=== PATIENT | male | born 1970 | race Hispanic/Latino ===

== ENCOUNTER 2018-11-28 20:56 | Observation (INO) ==
--- NOTE | 2018-11-28 21:30 | EKG ---
[address] [place] [address] Measurements Intervals [place] Rate: 106 P: 63 CA: 154 QRS: -5 QRSD: 118 T: 37 QT: 311 QTc: 373 Interpretive Statements SINUS TACHYCARDIA MODERATE INTRAVENTRICULAR CONDUCTION DELAY [110+ ms QRS DURATION] ST ELEVATION, PROBABLY EARLY REPOLARIZATION [ST ELEVATION WITH NORMALLY INFLECTED T WAVE] TYPE 3 BRUGADA PATTERN (NON-DIAGNOSTIC) [COVED/SADDLEBACK ST ELEVATION > 0.1mV IN 2 OF V1-3] ABNORMAL RHYTHM ECG No previous ECG available for comparison Electronically Signed On 11-29-18 14:01:07 [facility] by Hugh Mosley MD [email or web address]
[2018-11-28] MEDS ORDERED: KETOROLAC 15 MG/1 ML VIAL IVP ONE (21:39)
[2018-11-28] MEDS ORDERED: LORazepam 2 MG/1 ML VIAL IVP ONE (21:39)
[2018-11-28] MEDS ORDERED: Sodium Chloride 0.9% 1,000 ML PRIMARY IV ONE (21:39)
[2018-11-28] MEDS ORDERED: ONDANSETRON 4 MG/2 ML VIAL IVP ONE (21:39)
--- NOTE | 2018-11-28 21:43 | PDOC ---
General Adult HPI - General Chief Complaint: Abdomen Pain Stated Complaint: Feels like indigestion. Date Seen by Provider: 11/28/18 Time Seen by Provider: 21:30 Source: POSITIVE: Patient Exam Limitations: POSITIVE: No limitations - History of Present Illness Initial Comment: This is a well-developed, well-nourished, 48-year-old male, who is complaining of chest pain, shortness of breath, and abdominal pain. Patient's symptoms began just after lunch today at which time he had eaten some sausage. In addition he has diarrhea and is complaining of belching. Patient denies any headache, no sore throat, no runny nose, no chest pain but he does have rapid heart rate and shortness of breath. Patient denies any nausea vomiting or diarrhea, no hematuria or dysuria, no myalgias or arthralgias, no rashes, no ataxia. Any fever chills or sweats. Have you received a tetanus shot in the past 10 years?: Yes Body Location Affected: REPORTS: Chest, Abdomen Timing: REPORTS: Abrupt Duration: <24 hours Severity: Moderate Quality: REPORTS: "Pain" Context: REPORTS: Other (After eating) Modifying Factors: improves with: Nothing Similar Symptoms Previously: No Recent Care Received: REPORTS: Denies Any Prior Injuries Related to Current Complaint?: No - Patient Home Medications Home Medications: Home Medications enalapril maleate 10 mg tablet 10 mg PO BID #60 tab 08/26/18 Omeprazole 20 mg PO DAILY 11/28/18 - Patient Allergies Allergies/Adverse Reactions: Allergies Allergy/AdvReac Type Severity Reaction Status Date / Time No Known Allergies Allergy Verified 11/28/18 20:59 Past Medical History - heen HEENT History: Denies History Cardiovascular History: Hypertension Respiratory History: Denies History Gastrointestinal History: Denies History Genitourinary History: Denies History Endocrine History: Denies History Musculoskeletal History: Denies History Neurological History: Denies History Blood Disorders: Denies History Psychiatric History: Denies History Male Reproductive History: Denies History Cancer History: Denies History In Past Year Been Physically Harmed or Verbally Threatened: No History of MDRO: No Tobacco Use: Former Smoker In the Past 12 Months, Have Used or Abuse Any Substance: None Previous Surgical History: No Significant Family History: No pertinent family hx ROS - Limitations ROS Limitations: No Limitations Constitution: REPORTS: Denies Symptoms Cardiovascular: REPORTS: Heart Racing Respiratory: REPORTS: Shortness Of Breath Neurological: REPORTS: Denies Neuro Symptoms Gastrointestinal: REPORTS: Abdominal Pain Endocrine: REPORTS: Denies Symptoms Musculoskeletal: REPORTS: Denies MS Symptoms Genitourinary: REPORTS: Denies Symptoms Eyes: REPORTS: Denies Symptoms ENT: REPORTS: Denies Symptoms Skin: REPORTS: Denies Skin Symptoms Lympathic: REPORTS: Denies Lympathic Symptoms Immunologic: POSITIVE: Denies Symptoms Psychiatric: POSITIVE: Denies Psych Symptoms General Adult Exam - General Appearance General Appearance: POSITIVE: Alert, Cooperative, No Evidence of Trauma, Mild Distress - HEENT HEENT: POSITIVE: Head Inspection Nml, Eyes Inspection Nml, Ears Inspection Nml, Nose Inspection Nml, Oral/Dental Inspect. Nml, Pharynx Inspect. Nml, PERRL, EOMI - Pupils Pupil Size: 5 mm: Bilateral - Neck Neck: POSITIVE: Normal Inspection - Respiratory Respiratory: POSITIVE: No Respiratory Distress, Breath Sounds Normal, Chest Non- Tender - Cardiovascular Cardiovascular: POSITIVE: No Murmur, No Gallop, PMI Normal, Tachycardia Peripheral Pulses: Radial (R): 4+ - Abdomen Abdomen: Soft: (All Quadrants), Normal Bowel Sounds: (All Quadrants), Denies Tenderness: (RLQ), (LUQ), (RUQ), No Splenomegaly: (All Quadrants), No Hepatomegaly: (All Quadrants), No Guarding: (All Quadrants), No Rebound: (All Quadrants), No Palpable Pulse: (All Quadrants), No Palpabale Mass: (All Quadrants), No Distention: (All Quadrants), No Rigidity: (All Quadrants), Tenderness Noted: (LLQ) - Back Back: POSITIVE: Normal Inspection - Skin Skin: POSITIVE: Normal Color, Warm, Dry, No Rash - Extremities Extremity: Non-Tender: (All Extremities), Normal ROM: (All Extremities), Normal Inspection: (All Extremities), Pelvis Stable: (All Extremities) - Neurological / Psychological Neurological: POSITIVE: Affect Apporpriate, Oriented X3, Motor Normal, Sensation Normal Procedures - Laceration/Wound Repair Did patient have a laceration repair: No General Adult Progress - Results Reviewed by me Xrays/CTs/US Reviewed by me: Yes Discussed with Radiologist: Yes Lab Results Reviewed by Me: Yes Lab Results:: Laboratory Results 11/28/18 11/28/18 11/28/18 20:45 22:01 22:01 WBC 10.27 RBC 5.03 Hgb 15.4 Hct 46.0 MCV 91.5 H MCH 30.6 MCHC 33.5 RDW Std Deviation 42.7 RDW Coeff of Jimmy 12.9 Plt Count 282 MPV 9.9 Immature Gran % (Auto) 0.2 Neut % (Auto) 79.7 Lymph % (Auto) 12.0 [place] % (Auto) 7.3 Eos % (Auto) 0.7 Baso % (Auto) 0.1 Immature Gran # (Auto) 0.02 Neut # (Auto) 8.19 Lymph # (Auto) 1.23 [place] # (Auto) 0.75 Eos # (Auto) 0.07 Baso # (Auto) 0.01 WBC Morphology Comment Normal morphology Plt Morphology Comment Normal morphology RBC Morph Comment Normal morphology ESR 13 PT 10.0 INR 0.98 D-Dimer 0.20 Sodium Potassium Chloride Carbon Dioxide Anion Gap BUN Creatinine Estimated GFR BUN/Creatinine Ratio Glucose Calculated Osmolality Calcium Magnesium Total Bilirubin AST ALT Alkaline Phosphatase CK-MB (CK-2) Troponin I Handheld C-Reactive Protein NT-Pro-B Natriuret Pep Total Protein Albumin Globulin Albumin/Globulin Ratio Amylase Lipase TSH Ur Collection Type Clean catch urine Urine Color Yellow Urine Clarity Clear Urine pH 7.0 Ur Specific [place] 1.010 Urine Protein Negative Urine Glucose (UA) Negative Urine Ketones Negative Urine Occult Blood Trace-intact H Urine Nitrate Negative Urine Bilirubin Negative Urine Urobilinogen 0.2 Ur Leukocyte Esterase Negative Urine RBC 1-3 Urine WBC None Ur Squamous Epith Cells None Ur Renal Epithelial Cell None Urine Crystals None Urine Bacteria None Urine Casts None Urine Mucus None Urine Trichomonas None Urine Yeast None Ur Culture Indicated? Culture not set 11/28/18 11/28/18 11/28/18 22:01 22:01 22:01 WBC RBC Hgb Hct MCV MCH MCHC RDW Std Deviation RDW Coeff of Jimmy Plt Count MPV Immature Gran % (Auto) Neut % (Auto) Lymph % (Auto) [place] % (Auto) Eos % (Auto) Baso % (Auto) Immature Gran # (Auto) Neut # (Auto) Lymph # (Auto) [place] # (Auto) Eos # (Auto) Baso # (Auto) WBC Morphology Comment Plt Morphology Comment RBC Morph Comment ESR PT INR D-Dimer Sodium 139 Potassium 3.5 L Chloride 103 Carbon Dioxide 26 Anion Gap 10 BUN 13 Creatinine 0.9 Estimated GFR > 60 BUN/Creatinine Ratio 14.44 Glucose 151 H Calculated Osmolality 290.0 Calcium 9.8 Magnesium 1.8 Total Bilirubin 0.8 AST 28 ALT 32 Alkaline Phosphatase 94 CK-MB (CK-2) 2.62 Troponin I Handheld 0.000 C-Reactive Protein 0.9 NT-Pro-B Natriuret Pep 44.5 Total Protein 7.8 Albumin 4.7 Globulin 3.1 Albumin/Globulin Ratio 1.50 Amylase 134 H Lipase 113 TSH 2.05 Ur Collection Type Urine Color Urine Clarity Urine pH Ur Specific [place] Urine Protein Urine Glucose (UA) Urine Ketones Urine Occult Blood Urine Nitrate Urine Bilirubin Urine Urobilinogen Ur Leukocyte Esterase Urine RBC Urine WBC Ur Squamous Epith Cells Ur Renal Epithelial Cell Urine Crystals Urine Bacteria Urine Casts Urine Mucus Urine Trichomonas Urine Yeast Ur Culture Indicated? CBC and BMP: 11/28/18 22:01 11/28/18 22:01 EKG Interpreted/Reviewed By Me:: Yes EKG Interpretation:: POSITIVE: Abnormal EKG (Patient's EKG shows a tachycardia with 109 beats a minute and ST changes in lead V3 suggestive of Brugada syndrome.) - Patient's Progress Pain Medication Addressed: POSITIVE: Yes Re-Examine Time: 23:19 Status: POSITIVE: Improved MDM / ED Course: Patient was evaluated, an IV started, blood drawn and sent to the lab for studies, CT examination of chest and abdomen were obtained as well as EKG. Findings: EKG shows sinus tachycardia with a rate of 106 beats a minute and no ST elevated VA is appreciated however there is ST changes in lead V3 suggestive of Brugada syndrome. CBC shows white count hemoglobin and hematocrit and platelets are normal. ESR is 13 and CRP is 0.9. PT/INR normal. D-dimer is normal at 0.20. Troponin is 0.000 and CK-MB is 2.62. CMP shows potassium of 3.5 and a glucose 151. Amylase is elevated at 134 with a normal lipase 113. TSH is 2.05. Urinalysis is positive for blood and negative for bacteria. CT scan of the chest shows no acute intrathoracic abnormalities specifically no PE. CT of the abdomen shows fluid in the small bowel that is nonspecific with no indication of bowel obstruction. Assessment: #1 chest pain with normal troponin however EKG shows ST changes in the anterior lateral leads suggestive of Brugada syndrome. #2 abdominal pain. Plan: Patient being admitted to rule out myocardial infarction. I've discussed patient with Dr. Santino Kearney, on-call patrol police sergeant in [facility], who is recommending admission, rule out, and evaluation by cardiology to further investigate Brugada syndrome. Patient is being started on a beta zacharaih per Dr. Kearney's recommendations. He recommends metoprolol, 25 mg by mouth twice a day. Antibiotics Given: No Quality Measure Initiative: CP/AMI: POSITIVE: EKG Quality Measure Initiative: CAP: POSITIVE: CXR or CT CVA/Syncope: POSITIVE: EKG - Consult Consult (If Yes, Name of Consulting MD & Time Called): Yes (Dr. Velazquez) Consulting MD will see pt:: POSITIVE: [facility] Admit Counseled: POSITIVE: Patient, RE: Lab Results, RE: Radiology Results, RE: DX, RE: Need for F/U Patient Care Time - Estimated PCT Patient Care Time (In Minutes): 60 Vital Signs - Recent Vital Signs Vital Signs: Vital Signs (Last 8 hours) Temp Pulse Resp BP Pulse Ox 11/28/18 21:07 98.9 F 117 H 20 136/105 97 - VS Reviewed Vital Signs Reviewed: Yes Discharge Clinical Impression: Chest pain, Abdominal pain Discharge Disposition: Admit to Inpatient Condition: Stable Follow Up With: NONE,NONE [Primary Care Provider] - Date Decision to Admit to Inpatient: 11/28/18 Time Decision to Admit to Inpatient: 23:37
[2018-11-28 22:07] LABS: BASOPHILS # (AUTO) 0.01 10*3/UL; BASOPHILS % (AUTO) 0.1 % (0-1); EOSINOPHILS # (AUTO) 0.07 10*3/UL; EOSINOPHILS % (AUTO) 0.7 % (0-8); Hemoglobin [HGB] 15.4 g/dL (14.0-18.0); LYMPHOCYTES # (AUTO) 1.23 10*3/uL; MEAN CORPUSCULAR HEMOGLOBIN 30.6 PG (27-31); MEAN CORPUSCULAR HGB CONC 33.5 g/dL (33-37); MEAN CORPUSCULAR VOLUME 91.5 FL (80-90); MEAN PLATELET VOLUME 9.9 FL (7.4-12.2); MONOCYTES # (AUTO) 0.75 10*3/UL (0.3-0.8); MONOCYTES % (AUTO) 7.3 % (5-15); NEUTROPHILS # (AUTO) 8.19 10*3/UL; NEUTROPHILS % (AUTO) 79.7 % (50-80); RED BLOOD COUNT 5.03 10^6/uL (4.70-6.10)
[2018-11-28 22:08] LABS: PLATELET MORPHOLOGY COMMENT NORMAL MORPHOLOGY (NORM); RBC MORPHOLOGY COMMENT NORMAL MORPHOLOGY (NORM); WBC MORPHOLOGY COMMENT NORMAL MORPHOLOGY (NORM)
[2018-11-28 22:17] LABS: BLOOD UREA NITROGEN 13 mg/dL (7-22); BUN/CREATININE RATIO 14.44 (6-20); LIPASE 113 IU/L (23-300); SERUM ALBUMIN 4.7 g/dL (3.5-4.8)
[2018-11-28 22:44] LABS: Erythrocyte Sediment Rate 13 MM/HR (0-15)
[2018-11-28 22:50] LABS: BILIRUBIN,URINE NEGATIVE (NEG); CLARITY,URINE CLEAR (CLEAR); COLOR,URINE YELLOW (Y); GLUCOSE, URINE (UA) NEGATIVE (NEG); OCCULT BLOOD,URINE Trace-intact (NEG); PROTEIN,URINE NEGATIVE (NEG); UROBILINOGEN,URINE 0.2 EU/dL (0.2)
[2018-11-28 22:52] LABS: URINE SAMPLE TYPE CLEAN CATCH URINE
--- NOTE | 2018-11-28 23:09 | DI ---
EXAM: CT Angiography Chest With Intravenous Contrast CLINICAL HISTORY: ITS.REASON sob Physician Notes: Tech Comments: TECHNIQUE: Axial computed tomographic angiography images of the chest with intravenous contrast using pulmonary embolism protocol. MIP reconstructed images were created and reviewed. COMPARISON: No relevant prior studies available. FINDINGS: Pulmonary arteries: Suboptimal bolus timing for the evaluation of PE. No large central PE. Some peripheral vessels not well seen. Aorta: No aortic aneurysm or dissection. Lungs: No consolidation. Pleural space: No significant effusion. No pneumothorax. Heart: Unremarkable. Bones/joints: Age indeterminate T8 and T9 compression deformities, may be remote. Soft tissues: Unremarkable as visualized. Lymph nodes: Unremarkable. IMPRESSION: No acute intrathoracic process..
--- NOTE | 2018-11-28 23:18 | DI ---
EXAM: CT Abdomen and Pelvis With Intravenous Contrast CLINICAL HISTORY: ITS.REASON abd pain Physician Notes: Tech Comments: TECHNIQUE: Axial computed tomography images of the abdomen and pelvis with intravenous contrast. COMPARISON: No relevant prior studies available. FINDINGS: Lung bases: No acute findings. ABDOMEN: Liver: Low-attenuation adjacent to the falciform ligament, possible focal fatty infiltration. Gallbladder and bile ducts: Unremarkable. Pancreas: Unremarkable. Spleen: Unremarkable. Adrenals: Unremarkable. Kidneys and ureters: Unremarkable. No hydronephrosis. Stomach and bowel: Mild fluid and air in small bowel loops, nonspecific, enteritis not excluded in the appropriate clinical setting. No evidence of bowel obstruction. Areas of mild colonic wall thickening may be related to underdistention. PELVIS: Appendix: Normal caliber appendix. Bladder: Unremarkable. Reproductive: Unremarkable as visualized. ABDOMEN and PELVIS: Intraperitoneal space: No free air. No significant fluid collection. Bones/joints: No acute fracture. Soft tissues: Small fat-containing umbilical hernia, ventral hernia, and inguinal hernias. Vasculature: Unremarkable. Lymph nodes: Unremarkable. IMPRESSION: 1. Mild fluid and air in small bowel loops, nonspecific, enteritis not excluded in the appropriate clinical setting. 2. Additional incidental findings, as above.
[2018-11-28] MEDS ORDERED: Metoprolol TARTRATE Tab 50 MG TAB PO ONE (23:32)
--- NOTE | 2018-11-29 00:08 | PDOC ---
HPI - History of Present Illness Date of Service: 11/28/18 Time of Service: 23:50 Chief Complaint: Burping, palpitation, pain epigastric chest area after burping. History of Present Illness: This is a 48 years old male with medical history significant for history of hypertension on enalapril who presented to the hospital with history of burping, some epigastric and chest pain after burping, did feel his heart was racing this all happened after lunch today. He said he ate some sausage. Patient did report some diarrhea he had about 3 bowel movements. No nausea no vomiting. No fever. Because of all the symptoms he came into the ER and had multiple testing including CT of the abdomen and chest showed some enteritis. Lab tests were n ormal except minimally elevated amylase, lipase was normal though. An EKG showed abnormality of the T-wave in V3 this was discussed with manager of radiology and he suggested metoprolol and admission for rule out and likely transfer in the morning if they bed at [facility]. Patient was given metoprolol also based on the cardiology recommendation. By the time came into the floor the patient continued to belch and he said he feel he has some gas in his stomach. Past Medical History Medical History: 1. Hypertension had it for 10 years Surgical History: No history of surgeries Pertinent Family History: Mother and father had hypertension Past Social History: Used to smoke quit in according to him, occasionally drink heavily last time was 25 days ago, rarely uses drugs. 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 Tobacco Use: Former Smoker Do you dip or chew tobacco: No In the Past 12 Months, Have Used or Abuse Any of the Following Substance: None Alcohol Use: Occasionally Medication / Allergies Home Medications: Home Medications Medication Instructions Recorded Confirmed Type enalapril maleate 10 mg tablet 10 mg PO BID #60 tab 08/26/18 11/28/18 Rx Omeprazole 20 mg PO DAILY 11/28/18 11/28/18 History Allergies/Adverse Reactions: Allergies Allergy/AdvReac Type Severity Reaction Status Date / Time No Known Allergies Allergy Verified 11/28/18 20:59 Review of Systems - Review of Systems All Systems: Reviewed & No Additional Complaints Except as Stated Exam - Vitals Vital Signs: Vital Signs Temperature 98.0 F Temperature Source Temporal Artery Scan Pulse Rate [Pulse Oximeter] 117 Pulse Rate 84 Respiratory Rate 18 Blood Pressure [Left Arm] 136/105 Blood Pressure 140/94 Pulse Ox 93 Oxygen Delivery Method Room Air Height 5 ft 7 in Weight 168 lb 9.6 oz - General General Appearance: No Acute Distress, Cooperative - Head Head Exam: Normal Inspection - Eye Eye Exam: POSITIVE: Normal Appearance - ENT ENT Exam: POSITIVE: Normal Exam - Neck Neck Exam: Normal Inspection - Respiratory Respiratory Exam: POSITIVE: Clear to Auscultation - Bilaterally - Cardiovascular Cardiovascular Exam: POSITIVE: RRR - GI/Abdominal GI/Abdominal Exam: POSITIVE: Normal Bowel Sounds, Non Distended, Soft, No Organomegaly Additional GI/Abdominal Exam Details: Minimal tenderness in the epigastric area abdomen is very soft. - Rectal Rectal Exam: POSITIVE: Deferred - External Exam: POSITIVE: Deferred - Extremities Extremities Exam: POSITIVE: Normal Inspection - Back Back Exam: POSITIVE: Normal Inspection - Neurological Neurological Exam: POSITIVE: Alert, Oriented x 3, CN II-XII Intact, No Facial Droop, Speech Intact / Clear, Moves All Extremities Equally - Psychiatric Psychiatric Exam: POSITIVE: Normal Affect Results - Labs CBC and BMP: 11/28/18 22:01 11/28/18 22:01 - EKG Data -: EKG Interpreted by Me Rate: Tachycardia - EKG Data EKG Interpretation: Other (EKG showed sinus tachycardia, with incomplete right bundle, there is minimal elevation in V3 with some abnormality in T-wave there. Questionable Brugada pattern) - Imaging Status: Report Reviewed by Me (CT chest Negative, CT abdomen 1. Mild fluid and air in small bowel loops, nonspecific, enteritis not excluded in the appropriate clinical setting.) Assessment and Plan - Patient Problems (1) Abdominal pain Current Visit: Yes Status: Acute Comment: Symptoms mainly looks abdominal probably gastroenteritis. He had belching and diarrhea with also possible reflux symptoms. Will put him on Protonix. Put him on some IV fluid. The chest discomfort looks like reflux rather than anginal pain. Code(s): R10.9 - Unspecified abdominal pain (2) Abnormal EKG Current Visit: Yes Status: Acute Comment: His EKG was abnormal possible Brugada pattern and this was discussed with the manager of radiology per the ER physician will rule him out based on the manager of radiology recommendation and will continue with metoprolol. Will speak with the manager of radiology tomorrow to see his recommendation. Code(s): R94.31 - Abnormal electrocardiogram [ECG] [EKG] (3) Hypertension Current Visit: Yes Status: Acute Comment: Continue enalapril. Code(s): I10 - Essential (primary) hypertension
[2018-11-29] MEDS ORDERED: ONDANSETRON 4 MG/2 ML VIAL IVP PRN (00:10)
[2018-11-29] MEDS ORDERED: LIDOCAINE W/ SODIUM BICARB 0.5 ML SYR SUBD PRN (00:10)
[2018-11-29] MEDS ORDERED: CALCIUM CARBONATE 500 MG (TUMS) CHEWABLE TABLET PO PRN (00:10)
[2018-11-29] MEDS ORDERED: Sodium Chloride 0.9% 1,000 ML PRIMARY IV SCH (00:15)
[2018-11-29] MEDS ORDERED: SIMETHICONE 80 MG TABLET PO PRN (00:25)
[2018-11-29] MEDS: PANTOPRAZOLE IV 40 MG VIAL IVP SCH ×2 (00:30→11:25)
[2018-11-29] MEDS ORDERED: ACETAMINOPHEN 325 MG TABLET PO PRN (00:36)
[2018-11-29] MEDS ORDERED: Metoprolol TARTRATE Tab 25 MG TAB PO SCH (09:00)
[2018-11-29] MEDS ORDERED: ENALAPRIL 10 MG TABLET PO SCH (09:00)
--- NOTE | 2018-11-29 09:49 | DCSUMMARY ---
Hospitalization Summary Admit Date: 11/28/2018 Discharge Date: 11/29/18 Hospital Course: Discharge diagnoses 1. Probable gastroenteritis 2. GERD 3. Hypertension 4. Abnormal EKG questionable Brugada pattern Hospital course This is a 48 years old male with medical history significant for history of hypertension on enalapril who presented to the hospital with history of burping, some epigastric and chest pain after burping, did feel his heart was racing this all happened after lunch on the day of admission. He said he ate some sausage. Patient did report some diarrhea he had about 3 bowel movements. No nausea no vomiting. No fever. Because of all the symptoms he came into the ER and had multiple testing including CT of the abdomen and chest which showed some enteritis. Lab tests were normal except minimally elevated amylase, lipase was normal though. An EKG showed abnormality of the T-wave in V3 this was discussed with fitting room attendant and he suggested metoprolol and admission for rule out . Patient was given metoprolol based on the cardiology recommendation. By the time he came into the floor the patient continued to belch and he said he felt he has some gas in his stomach. We kept him overnight, repeat his enzymes and they remained negative. He felt better the next day. There is no diarrhea. He is describing more symptoms after he eats he would feel what she described as a "stress" in his stomach and pointing to his epigastrium and mid chest these last for 2 hours he said. I suspect he may have some reflux. I did speak with the fitting room attendant Dr. Kearney and he said he'll same as an outpatient. I did tell him that if his symptoms persist after a trial of treatment with Protonix he probably need to have a scope done. Regarding the EKG pattern it is not clear-cut I think Brugada pattern but suspicious and as recommended by cardiology will put him on metoprolol until he is seen by him. 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 We gave him antifungal with steroid combination. He need follow-up with his primary Laboratory Results 11/28/18 11/28/18 11/28/18 20:45 22:01 22:01 WBC 10.27 RBC 5.03 Hgb 15.4 Hct 46.0 MCV 91.5 H MCH 30.6 MCHC 33.5 RDW Std Deviation 42.7 RDW Coeff of Jimmy 12.9 Plt Count 282 MPV 9.9 Immature Gran % (Auto) 0.2 Neut % (Auto) 79.7 Lymph % (Auto) 12.0 [place] % (Auto) 7.3 Eos % (Auto) 0.7 Baso % (Auto) 0.1 Immature Gran # (Auto) 0.02 Neut # (Auto) 8.19 Lymph # (Auto) 1.23 [place] # (Auto) 0.75 Eos # (Auto) 0.07 Baso # (Auto) 0.01 WBC Morphology Comment Normal morphology Plt Morphology Comment Normal morphology RBC Morph Comment Normal morphology ESR 13 PT 10.0 INR 0.98 D-Dimer 0.20 Sodium Potassium Chloride Carbon Dioxide Anion Gap BUN Creatinine Estimated GFR BUN/Creatinine Ratio Glucose Calculated Osmolality Calcium Magnesium Total Bilirubin AST ALT Alkaline Phosphatase CK-MB (CK-2) Troponin I Handheld Troponin I C-Reactive Protein NT-Pro-B Natriuret Pep Total Protein Albumin Globulin Albumin/Globulin Ratio Amylase Lipase TSH Ur Collection Type Clean catch urine Urine Color Yellow Urine Clarity Clear Urine pH 7.0 Ur Specific [place] 1.010 Urine Protein Negative Urine Glucose (UA) Negative Urine Ketones Negative Urine Occult Blood Trace-intact H Urine Nitrate Negative Urine Bilirubin Negative Urine Urobilinogen 0.2 Ur Leukocyte Esterase Negative Urine RBC 1-3 Urine WBC None Ur Squamous Epith Cells None Ur Renal Epithelial Cell None Urine Crystals None Urine Bacteria None Urine Casts None Urine Mucus None Urine Trichomonas None Urine Yeast None Ur Culture Indicated? Culture not set 11/28/18 11/28/18 11/28/18 22:01 22:01 22:01 WBC RBC Hgb Hct MCV MCH MCHC RDW Std Deviation RDW Coeff of Jimmy Plt Count MPV Immature Gran % (Auto) Neut % (Auto) Lymph % (Auto) [place] % (Auto) Eos % (Auto) Baso % (Auto) Immature Gran # (Auto) Neut # (Auto) Lymph # (Auto) [place] # (Auto) Eos # (Auto) Baso # (Auto) WBC Morphology Comment Plt Morphology Comment RBC Morph Comment ESR PT INR D-Dimer Sodium 139 Potassium 3.5 L Chloride 103 Carbon Dioxide 26 Anion Gap 10 BUN 13 Creatinine 0.9 Estimated GFR > 60 BUN/Creatinine Ratio 14.44 Glucose 151 H Calculated Osmolality 290.0 Calcium 9.8 Magnesium 1.8 Total Bilirubin 0.8 AST 28 ALT 32 Alkaline Phosphatase 94 CK-MB (CK-2) 2.62 Troponin I Handheld 0.000 Troponin I C-Reactive Protein 0.9 NT-Pro-B Natriuret Pep 44.5 Total Protein 7.8 Albumin 4.7 Globulin 3.1 Albumin/Globulin Ratio 1.50 Amylase 134 H Lipase 113 TSH 2.05 Ur Collection Type Urine Color Urine Clarity Urine pH Ur Specific [place] Urine Protein Urine Glucose (UA) Urine Ketones Urine Occult Blood Urine Nitrate Urine Bilirubin Urine Urobilinogen Ur Leukocyte Esterase Urine RBC Urine WBC Ur Squamous Epith Cells Ur Renal Epithelial Cell Urine Crystals Urine Bacteria Urine Casts Urine Mucus Urine Trichomonas Urine Yeast Ur Culture Indicated? 11/29/18 11/29/18 04:00 10:01 WBC RBC Hgb Hct MCV MCH MCHC RDW Std Deviation RDW Coeff of Jimmy Plt Count MPV Immature Gran % (Auto) Neut % (Auto) Lymph % (Auto) [place] % (Auto) Eos % (Auto) Baso % (Auto) Immature Gran # (Auto) Neut # (Auto) Lymph # (Auto) [place] # (Auto) Eos # (Auto) Baso # (Auto) WBC Morphology Comment Plt Morphology Comment RBC Morph Comment ESR PT INR D-Dimer Sodium Potassium Chloride Carbon Dioxide Anion Gap BUN Creatinine Estimated GFR BUN/Creatinine Ratio Glucose Calculated Osmolality Calcium Magnesium Total Bilirubin AST ALT Alkaline Phosphatase CK-MB (CK-2) Troponin I Handheld Troponin I < 0.012 < 0.012 C-Reactive Protein NT-Pro-B Natriuret Pep Total Protein Albumin Globulin Albumin/Globulin Ratio Amylase Lipase TSH Ur Collection Type Urine Color Urine Clarity Urine pH Ur Specific [place] Urine Protein Urine Glucose (UA) Urine Ketones Urine Occult Blood Urine Nitrate Urine Bilirubin Urine Urobilinogen Ur Leukocyte Esterase Urine RBC Urine WBC Ur Squamous Epith Cells Ur Renal Epithelial Cell Urine Crystals Urine Bacteria Urine Casts Urine Mucus Urine Trichomonas Urine Yeast Ur Culture Indicated? Discharge suction Diet regular Activity as tolerated Medications Home Medications enalapril maleate 10 mg tablet 10 mg PO BID #60 tab 08/26/18 [Rx Confirmed 11/28/18] Metoprolol Tartrate Tab [Lopressor Tab] 25 mg PO BID #60 tab 11/29/18 [Rx] Nystatin/Triamcin [Nystatin-Triamcinolone Cream] 15 gm TP BID 5 Days #1 cream..g. 11/29/18 [Rx] Pantoprazole Sodium [Protonix] 40 mg PO DAILY #30 tab 11/29/18 [Rx] Follow-up with PCP in 1-2 weeks, follow-up with Dr. Kearney as scheduled Condition at discharge was stable for discharge Exam - Vitals Vital Signs: Vital Signs Temperature 98.2 F Temperature Source Temporal Artery Scan Pulse Rate [Pulse Oximeter] 73 Pulse Rate 75 Respiratory Rate 22 Blood Pressure [Left Arm] 132/87 Blood Pressure 140/94 Pulse Ox 95 Oxygen Delivery Method Room Air Height 5 ft 7 in Weight 168 lb 9.6 oz - General General Appearance: No Acute Distress, Cooperative - Head Head Exam: Normal Inspection - Eye Eye Exam: POSITIVE: Normal Appearance - ENT ENT Exam: POSITIVE: Normal Exam - Neck Neck Exam: Normal Inspection - Respiratory Respiratory Exam: POSITIVE: Clear to Auscultation - Bilaterally - Cardiovascular Cardiovascular Exam: POSITIVE: RRR - GI/Abdominal GI/Abdominal Exam: POSITIVE: Normal Bowel Sounds, Non Tender, Non Distended, Soft, No Organomegaly - Rectal Rectal Exam: POSITIVE: Deferred - External Exam: POSITIVE: Deferred Additional Exam Details: Nose very small red area with scales on the shaft of the penis. - Extremities Extremities Exam: POSITIVE: Normal Inspection - Back Back Exam: POSITIVE: Normal Inspection - Neurological Neurological Exam: POSITIVE: Alert, Oriented x 3, CN II-XII Intact, Moves All Extremities Equally - Psychiatric Psychiatric Exam: POSITIVE: Normal Affect - Integumentary Integumentary Exam: POSITIVE: Normal Color Patient Problems - Patient Problem List (1) Abdominal pain Status: Acute Code(s): R10.9 - Unspecified abdominal pain Category: Medical (2) Abnormal EKG Status: Acute Code(s): R94.31 - Abnormal electrocardiogram [ECG] [EKG] Category: Medical (3) Hypertension Status: Acute Code(s): I10 - Essential (primary) hypertension Category: Medical
== END 2018-11-29 11:39 | disposition home or self-care (01) ==
LOC: ER 20:56 → MED/SURG 20:56
PROVIDERS: ADMIT Internal Medicine; ATTEND Internal Medicine